=== PATIENT | female | born 1975 | race Caucasian/White ===

== ENCOUNTER 2021-10-24 14:26 | Inpatient (IN) | payer OTHER ==
[~2021-10-24] VITALS: Ht 170.2 cm; Wt 56.8 kg
[2021-10-24] MEDS ORDERED: ONDANSETRON HCL 4 MG/2 ML VIAL IVP ONE ×2 (15:00→16:30)
[2021-10-24] MEDS ORDERED: NACL 0.9% 1,000 ML IV ONE ×2 (15:00→16:30)
[2021-10-24 15:01] VITALS: BP_SYST 131
[2021-10-24 16:06] LABS: BASOPHILS % (AUTO) 0.2 % (0.0-2.0); HEMOGLOBIN 15.3 g/dL (12.0-16.0); LYMPHOCYTES # (AUTO) 1.3 K/uL (1.0-5.5); LYMPHOCYTES % (AUTO) 8.8 % (20.5-51.5); MEAN CORPUSCULAR HEMOGLOBIN 33 pg (27-31); MEAN CORPUSCULAR HGB CONC 34 % (32-36); MEAN CORPUSCULAR VOLUME 96 fL (79.0-98.0); MONOCYTES # (AUTO) 0.5 K/uL (0.0-1.0); MONOCYTES % (AUTO) 3.3 % (1.7-9.3); NEUTROPHILS # (AUTO) 12.7 K/uL (1.8-7.7); NEUTROPHILS % (AUTO) 87.7 % (40.0-70.0); PLATELET COUNT (AUTO) 328 K/uL (130-430); RED CELL DISTRIBUTION WIDTH 13.4 % (9.0-15.0); WHITE BLOOD COUNT (AUTO) 14.4 K/uL (4.8-10.8)
[2021-10-24 16:16] LABS: CALCIUM 8.9 mg/dL (8.4-11.0); CREATININE 0.98 mg/dL (0.55-1.30); POTASSIUM 3.1 mmol/L (3.5-5.1)
[2021-10-24 16:22] LABS: ALBUMIN 4.5 g/dL (3.4-4.8); TOTAL BILIRUBIN 1.7 mg/dL (0.0-1.0)
[2021-10-24] MEDS ORDERED: MAG HYDROX/AL HYDROX/SIMETH 30 ML, DICYCLOMINE HCL 20 MG, LIDOCAINE VISCOUS 2% 15ML (PO... PO ONE ×3 (16:30)
[2021-10-24 16:54] LABS: BILIRUBIN,URINE NEGATIVE (NEGATIVE); CLARITY/URINE CLEAR (CLEAR); COLOR,URINE ORANGE (YELLOW); GLUCOSE,URINE NEGATIVE (NEGATIVE); KETONES,URINE TRACE (NEGATIVE); LEUKOCYTE ESTERASE ,URINE NEGATIVE (NEGATIVE); NITRITE, URINE NEGATIVE (NEGATIVE); PROTEIN URINE 2+ (NEGATIVE); UROBILINOGEN,URINE 0.2 (0.2-1.0)
[2021-10-24 17:05] LABS: BLOOD, URINE TRACE (NEGATIVE)
[2021-10-24 17:07] LABS: BACTERIA,URINE FEW /HPF (None Seen); RBC,URINE 0-3 /HPF (0-3)
[2021-10-24] MEDS ORDERED: POTASSIUM CHLORIDE 20 MEQ/PKT PACKET PO ONE (18:00)
[2021-10-24] MEDS ORDERED: fentaNYL CITRATE/PF 100 MCG/2 ML AMP IVP ONE (19:30)
[2021-10-24] MEDS ORDERED: DIPHENHYDRAMINE INJ 50 MG/ML VIAL IVP ONE (19:30)
[2021-10-24] MEDS ORDERED: METOCLOPRAMIDE HCL 10 MG/2 ML VIAL IVP ONE (19:30)
[2021-10-24] MEDS ORDERED: METOCLOPRAMIDE HCL 10 MG/2 ML VIAL IVP PRN (21:15)
[2021-10-24] MEDS ORDERED: POTASSIUM CHLORIDE 20 MEQ in 0.45% NACL 1,000 ML IV SCH (21:15)
[2021-10-24] MEDS ORDERED: ONDANSETRON HCL 4 MG/2 ML VIAL IVP PRN (21:15)
[2021-10-24] MEDS ORDERED: PROMETHAZINE INJ.Non-Formulary 25 MG/ML AMP IM PRN (21:15)
[2021-10-24 21:22] LABS: AMYLASE 42 U/L (0-100); LIPASE 123 U/L (73-393)
[2021-10-24] MEDS ORDERED: DIPH25CA83 PO (21:28)
[2021-10-24] MEDS ORDERED: KCL 20 mEq in 100 mL (PREMIX) 0 ML IV ONE (22:28)
[2021-10-24] MEDS: cefTRIAXone 1 GM in D5W 50 ML IV SCH (22:45)
[2021-10-24 22:47] VITALS: BP_SYST 151
[2021-10-24 23:22] LABS: BARBITURATE, URINE NEGATIVE (NEG <=200); BENZODIAZEPINE, URINE NEGATIVE (NEG <=150); CANNABINOID, URINE POSITIVE (NEG <=50); COCAINE, URINE NEGATIVE (NEG <=150); METHAMPHETAMINES SCREEN,URINE NEGATIVE (NEG <=500); OPIATE, URINE NEGATIVE (NEG <=100); PHENCYCLIDINE SCREEN,URINE NEGATIVE (NEG <=25); URINE AMPHETAMINE NEGATIVE (NEG <=500); URINE METHADONE NEGATIVE (NEG <=200); URINE OXYCODONE SCREEN NEGATIVE (NEG <=100); URINE PROPOXYPHENE SCREEN NEGATIVE (NEG <=300)
[2021-10-24 23:23] LABS: UR TRICYCLIC ANTIDEPRESSANTS NEGATIVE (NEG <=300)
[2021-10-25] MEDS ORDERED: cefTRIAXone 1 GM VIAL ONE (00:16)
[2021-10-25 01:55] VITALS: BP_SYST 133
[2021-10-25 07:59] LABS: BASOPHILS % (AUTO) 0.5 % (0.0-2.0); EOSINOPHILS # (AUTO) 0.1 K/uL (0.0-0.4); HEMATOCRIT 38.5 % (36-48); HEMOGLOBIN 13.4 g/dL (12.0-16.0); LYMPHOCYTES # (AUTO) 2.3 K/uL (1.0-5.5); LYMPHOCYTES % (AUTO) 28.8 % (20.5-51.5); MEAN CORPUSCULAR HEMOGLOBIN 34 pg (27-31); MEAN CORPUSCULAR HGB CONC 35 % (32-36); MEAN CORPUSCULAR VOLUME 97 fL (79.0-98.0); MONOCYTES # (AUTO) 0.4 K/uL (0.0-1.0); MONOCYTES % (AUTO) 5.7 % (1.7-9.3); PLATELET COUNT (AUTO) 237 K/uL (130-430); RED BLOOD CELL COUNT(AUTO) 3.98 MIL/uL (4.2-6.2); RED CELL DISTRIBUTION WIDTH 13.5 % (9.0-15.0); WHITE BLOOD COUNT (AUTO) 7.9 K/uL (4.8-10.8)
[2021-10-25 08:00] VITALS: BP_SYST 134
[2021-10-25 08:25] LABS: ALBUMIN 3.5 g/dL (3.4-4.8); CALCIUM 7.7 mg/dL (8.4-11.0); CREATININE 0.78 mg/dL (0.55-1.30); POTASSIUM 3.2 mmol/L (3.5-5.1); THYROID STIMULATING HORMONE 3.61 uIu/mL (0.36-3.74); TOTAL BILIRUBIN 1.7 mg/dL (0.0-1.0)
[2021-10-25] MEDS: PANTOPRAZOLE SODIUM 40 MG/VIAL (PROTONIX) IVP SCH ×2 (10:26→22:43)
[2021-10-25] MEDS: POTASSIUM CHLORIDE 20 MEQ in 0.45% NACL 1,000 ML IV SCH ×2 (10:38→19:38)
[2021-10-25 12:00] VITALS: BP_SYST 123
[2021-10-25 16:00] VITALS: BP_SYST 130
[2021-10-25 20:05] VITALS: BP_SYST 133
[2021-10-25] MEDS: cefTRIAXone 1 GM in D5W 50 ML IV SCH (22:43)
[2021-10-26 01:15] VITALS: BP_SYST 143
[2021-10-26 08:05] VITALS: BP_SYST 135
[2021-10-26] MEDS: PANTOPRAZOLE SODIUM 40 MG/VIAL (PROTONIX) IVP SCH ×2 (08:17→21:51)
[2021-10-26 12:44] VITALS: BP_SYST 144
[2021-10-26] MEDS: POTASSIUM CHLORIDE 20 MEQ in 0.45% NACL 1,000 ML IV SCH ×2 (14:27→21:56)
[2021-10-26 16:52] VITALS: BP_SYST 127
[2021-10-26 20:00] VITALS: BP_SYST 143
[2021-10-26] MEDS: cefTRIAXone 1 GM in D5W 50 ML IV SCH (21:53)
[2021-10-27] VITALS: BP_SYST 138
[2021-10-27 08:00] VITALS: BP_SYST 143
[2021-10-27] MEDS: PANTOPRAZOLE SODIUM 40 MG/VIAL (PROTONIX) IVP SCH (10:32)
[2021-10-27] MEDS: POTASSIUM CHLORIDE 20 MEQ in 0.45% NACL 1,000 ML IV SCH (10:38)
[2021-10-27 11:50] VITALS: BP_SYST 136
[2021-10-27 13:06] VITALS: BP_SYST 136
== END 2021-10-27 13:45 | disposition home or self-care (01) | DRG 384 ==
LOC: SED 14:26 → STU 21:12 → SMU 10-26 10:52
PROVIDERS: ADMIT Family Medicine; ATTEND Family Medicine
DX: K27.9 Peptic ulcer, site unspecified, unspecified as acute or chronic, without hemorrhage or perforation (principal); Z20.822 Contact with and (suspected) exposure to COVID-19; K76.0 Fatty (change of) liver, not elsewhere classified; Z98.891 History of uterine scar from previous surgery; Z87.891 Personal history of nicotine dependence; Z80.3 Family history of malignant neoplasm of breast
CPT/HCPCS: 36415; 70450-TC; 76376; 76705; 80053; 80307; 81000; 82150; 83690; 84443; 85025; 93005; 96361; 96374; 96375; 96376; 99285; C9113; G0378; J0696; J1200; J2001; J2405; J2765; J3010; J3480; J7060